=== PATIENT | male | born 1985 | race Two or more races ===

== ENCOUNTER → 2016-11-28 | Outpatient (CLI) | payer BC ==
--- NOTE | ~2016-11-28 | CR7 ---
[facility] A Service of [facility] / [facility] RADIOLOGY TEXT RESULTS PATIENT: EARNEST MONTILLA LOCATION: [facility] : 83 UNIT #: [id number] AGE: [address]: Diogo Mcguire MD SEX: M ORDER DR: [id number] [facility] [address] [place], [place] [address] [id number] O MR#: [id number] Acc #: [id number] NAME: EARNEST MONTILLA : 1985 SEX: M STUDY DATE/TIME: 11/28/2016 8:10 UNIT: [facility] ROOM: STUDY DESCRIPTION: CR Abdomen Single AP View Attending Physician: Diogo Mcguire M.D. Referring Physician: Diogo Mcguire M.D. Ordering Physician: Diogo Mcguire M.D. Primary Care Physician: No Primary Care Physician MEDICAL IMAGING REPORT This report is preliminary unless electronic signature is present EXAM Abdomen single AP view 11/28/2016 [facility]. HISTORY 31-year-old male with right-sided flank pain, history of kidney stones. Patient scheduled for renal stone protocol CT today. FINDINGS KUB includes 2 views centered high and collimated over the pelvis. Kidneys are obscured by colon gas and stool. No obvious renal lithiasis identified. I see no calcifications in the expected course of either ureter and no bladder stones although the urinary bladder is quite distended. Refer to more sensitive to CT report. IMPRESSION No obvious renal stone, ureteral stone or bladder stone identified on plain films. The urinary bladder is quite distended. Refer to patient's stone protocol CT ordered today. Dictated by... Kye Sloan M.D. THIS IS AN ELECTRONICALLY VERIFIED REPORT Kye Sloan M.D. at 11/28/2016 2:34 PM CESAR/christiano TD: 11/28/2016 13:44 JOB #: [id number] MEDICAL IMAGING REPORT Page 1 of 1 COPY
--- NOTE | ~2016-11-28 | CT4 ---
[facility] A Service of [facility] RADIOLOGY TEXT RESULTS PATIENT: EARNEST MONTILLA LOCATION: [facility] : 83 UNIT #: [id number] AGE: [address]: Diogo Mcguire MD SEX: M ORDER DR: [id number] [place] [id number] [facility]. [place], [place] [address] [id number] O MR#: [id number] Acc #: [id number] NAME: EARNEST MONTILLA : 1985 SEX: M STUDY DATE/TIME: 11/28/2016 8:41 UNIT: [facility] ROOM: STUDY DESCRIPTION: CT Abd and Pelv Wo Cont Attending Physician: Diogo Mcguire M.D. Referring Physician: Diogo Mcguire M.D. Ordering Physician: Diogo Mcguire M.D. Primary Care Physician: Primary Care Physician No MEDICAL IMAGING REPORT This report is preliminary unless electronic signature is present EXAM CT scan of the abdomen and pelvis without contrast INDICATION Right flank pain since July. Kidney stone removed and stent placed in right kidney in July. TECHNIQUE CT of the abdomen and pelvis was performed without contrast using the renal stone protocol. Coronal and sagittal reformatted images were obtained. This CT examination was performed with one or more of the following radiation dose reduction techniques: automatic exposure control, adjustment of mA and/or kV according to patient size, and iterative reconstruction. There are no comparison studies available. FINDINGS The lung bases are clear. Tiny cyst in the liver. The gallbladder and the spleen are unremarkable. There is no evidence for renal stone or hydronephrosis. The adrenal glands are unremarkable. The pancreas is unremarkable. PELVIS: Urinary bladder is unremarkable. The colon is unremarkable. The appendix is normal. The remainder of the pelvis is unremarkable. The bone windows are unremarkable. IMPRESSION There is no evidence for renal stone. Dictated by... Juan J Levin M.D. [facility] A Service of [facility] RADIOLOGY TEXT RESULTS PATIENT: EARNEST MONTILLA LOCATION: [facility] : 83 UNIT #: [id number] AGE: [address]: Diogo Mcguire MD SEX: M ORDER DR: THIS IS AN ELECTRONICALLY VERIFIED REPORT Juan J Levin M.D. at 11/29/2016 8:14 AM [place] TD: 11/28/2016 13:47 JOB #: [id number] MEDICAL IMAGING REPORT Page 1 of 1 COPY
== END | disposition home or self-care (01) ==
LOC: CCAT 07:30
DX: R10.9 Unspecified abdominal pain (principal); N20.0 Calculus of kidney
CPT/HCPCS: 74000; 74176